=== PATIENT | male | born 1970 | race Hispanic/Latino ===

== ENCOUNTER 2025-09-28 14:34 | Emergency (ER) | payer MEDICARE ==
[~2025-09-28] VITALS: Ht 172.7 cm; Wt 84.4 kg
--- NOTE | 2025-09-28 15:25 | HMCIMG ---
EXAM: CT Head Without IV contrast. CLINICAL HISTORY: Head injury with syncopal episode. TECHNIQUE: Axial computed tomography images of the head/brain without intravenous contrast. CT dose length product (DLP): 965 mGy???cm. COMPARISON: None provided. FINDINGS: BRAIN: Age-appropriate diffuse cerebral volume loss. Scattered small ischemic changes in the bilateral frontoparietal white matter. No evidence of acute hemorrhage. No mass lesion. No CT evidence for acute territorial infarct. No midline shift or extra-axial collections. No CT evidence of trauma-related neuroparenchymal injury. VENTRICLES: No hydrocephalus. ORBITS: The orbits are unremarkable. SINUSES AND MASTOIDS: Mucosal thickening and partial opacification of the bilateral ethmoid, maxillary, frontal, and sphenoid sinuses, compatible with pansinusitis. Mastoid air cells are clear. BONES: Minimally displaced fracture of the left nasal bone. SOFT TISSUES: Adjacent soft tissue contusion overlying the left nasal region. No large scalp hematoma. IMPRESSION: * No CT evidence of acute intracranial hemorrhage, mass effect, territorial infarct, or trauma-related neuroparenchymal injury in this patient with head injury and syncope. * Minimally displaced left nasal bone fracture with overlying soft tissue contusion. * Age-appropriate diffuse cerebral volume loss with chronic small ischemic changes in the bilateral frontoparietal white matter and CT features of paranasal sinusitis involving the ethmoid, maxillary, frontal, and sphenoid sinuses. /[place]
[2025-09-28 15:51] VITALS: BP 108/66; PULSE 69; RESP 17; TEMP 98.6; O2SAT 98
--- NOTE | 2025-09-28 15:54 | ERN ---
ED Note History of Present Illness Stated Complaint: POSSIBLEVHEAD INJURY Chief Complaint: Head Injury Time Seen by MD: 14:37 Time Seen by Midlevel: 14:40 Dictation: 55 year old male with a history of mental delay brought in by provider for evaluation of head injury with a sink. As per provider patient went to PCP for evaluation of having flu-like symptoms while he was there the nurse asked him to remove his sweater to check his blood pressure. After the blood pressure was checked patient became upset went to the restroom and hit his head on the sink and broke the same. Negative LOC, no blood thinners. Provider stated soon as he heard a loud noise from the restroom he came out of the restroom and said in broke. Allergies: Coded Allergies: No Known Allergies (Unverified Allergy, Unknown, 09/28/25) Past Medical History Past Medical History: Anxiety, Bipolar, Depression, Diabetes-Type II, GERD, High Cholesterol, Prostatitis, Seizure Additional Past Medical Hx: PSYCHOSIS Surgical History: None Review of System Dictation Constitutional: Negative for fever,chills, and weight loss Eyes: Negative for injury, pain,redness, and discharge ENT: Negative for injury,pain or swelling Cardiovascular: Negative for chest pain, palpitations, and edema Respiratory: Negative for shortness of breath, cough, and wheezing, Abdomen/GI: Negative for abdominal pain, nausea, vomiting, diarrhea, and constipation Back: Negative for injury and pain : Negative for injury, bleeding and discharge MS/Extremity: Negative for injury and deformity Skin: Negative for rash, and discoloration Neuro: Negative for headache, weakness, numbness, tingling, and seizure Psych: Negative for suicide ideation, homicidal ideation, and hallucinations Review of Systems: was completed Initial Vital Sign VS Vital Signs Date Time Temp Pulse Resp B/P (MAP) Pulse Ox O2 Delivery O2 Flow Rate FiO2 09/28/25 14:36 97.9 88 16 113/74 96 Room Air 0 Physical Exam Dictation General: awake, alert, NAD Head/Face: Normocephalic, atraumatic Eyes: PERRL, EOMI, vision at baseline, no pain on palpation around the orbital bones ENT: oral cavity clear, TMs clear, no signs of infection, there is no swelling or obvious dislocation or fractures, no pain on palpation around the nasal bone Neck: Trachea midline, supple, no nuchal rigidity Cardiovascular: RRR, normal S1/S2, No MRGs, no JVD Respiratory: CTAB, no respiratory distress, No rales or wheezes Abdomen: Soft, non-tender, non-distended, normal bowel sounds, no guarding or rebound. Skin: Warm, dry, normal turgor, no rash MS/Extremity: Pulses equal, no cyanosis, neurovascular intact, FROM Neuro: COAx4, GCS 15, strength 5/5, CN 2-12 intact, normal cerebellar exam, nor mal gait, Psych: Normal behavior, mood, and affect normal Results (Laboratory/Radiology) CT Scan Comment: [facility] [address] [place] [address] IMAGING REPORT Signed PATIENT: BHAVIK AVILA MR#: [id number] : 1970 SEX: M AGE: 55 LOCATION: [facility] ORDER [id number] STATUS: REG ER REPORT#: [id number] SERVICE [id number] REASON: head injury with sink ORDERING PHYSICIAN: TAMMY FOLEY CNP PROCEDURE: HEAD WO - CT HEAD/BRAIN W/O CONTRAST EXAM: CT Head Without IV contrast. CLINICAL HISTORY: Head injury with syncopal episode. TECHNIQUE: Axial computed tomography images of the head/brain without intravenous contrast. CT dose length product (DLP): 965 mGy???cm. COMPARISON: None provided. FINDINGS: BRAIN: Age-appropriate diffuse cerebral volume loss. Scattered small ischemic changes in the bilateral frontoparietal white matter. No evidence of acute hemorrhage. No mass lesion. No CT evidence for acute territorial infarct. No midline shift or extra-axial collections. No CT evidence of trauma-related neuroparenchymal injury. VENTRICLES: No hydrocephalus. ORBITS: The orbits are unremarkable. SINUSES AND MASTOIDS: Mucosal thickening and partial opacification of the bilateral ethmoid, maxillary, frontal, and sphenoid sinuses, compatible with pansinusitis. Mastoid air cells are clear. BONES: Minimally displaced fracture of the left nasal bone. SOFT TISSUES: Adjacent soft tissue contusion overlying the left nasal region. No large scalp hematoma. IMPRESSION: * No CT evidence of acute intracranial hemorrhage, mass effect, territorial infarct, or trauma-related neuroparenchymal injury in this patient with head injury and syncope. * Minimally displaced left nasal bone fracture with overlying soft tissue contusion. * Age-appropriate diffuse cerebral volume loss with chronic small ischemic changes in the bilateral frontoparietal white matter and CT features of paranasal sinusitis involving the ethmoid, maxillary, frontal, and sphenoid sinuses. /[place] DICTATED BY: DOMINICK ZELAYA MD DATE: 09/28/251623 ELECTRONICALLY SIGNED BY: DOMINICK ZELAYA MD DATE: 09/28/251623 ED Course ED Course Orders Procedure Category Date Status Time Ct Head/Brain W/O CT 09/28/25 Resulted Contrast 14:41 Vital Signs Date Time Temp Pulse Resp B/P (MAP) Pulse Ox O2 Delivery O2 Flow Rate FiO2 09/28/25 14:36 97.9 88 16 113/74 96 Room Air 0 Medical Decision Making MDM MDM: 55 year old male with a history of mental delay brought in by provider for evaluation of head injury with a sink. As per provider patient went to PCP for evaluation of having flu-like symptoms while he was there the nurse asked him to remove his sweater to check his blood pressure. After the blood pressure was checked patient became upset went to the restroom and hit his head on the sink and broke the same. Negative LOC, no blood thinners. Provider stated soon as he heard a loud noise from the restroom he came out of the restroom and said in broke. CT results of head results shows a minimally displaced nasal fracture. Discussed findings with the provider. Educated that he needs to follow up with PCP for further evaluation by either plastic surgeon Orthopedics. Provider verbalized understanding. States she has not appointment with the PCP tomorrow and we will follow up on it. Differential diagnosis: ICH, SDH, Rationale: Tests considered and ordered secondary to shared decision making include: Previous outside records reviewed: Old ER visits. Risk of complication and/or morbidity or mortality of patient management: None Medications-Per medication reconciliation Need for hospitalization: Patient does not meet criteria for hospitalization. Need for emergency major/minor surgery: No There are no social concerns with this patient. Prescription drug management Prescriptions will include symptomatic care Patient's prior external medical records from other ER visits were reviewed by me as indicated. Prior testing and results from previous visits were reviewed. Prior tests were taken into account with medical decision making and resource utilization, independent historian/historians were used to obtain complete medical history. I independently interpreted the test that were performed, results were reviewed by me and considered findings on radiology if ordered. Medical management and examination interpretation discussions were had by me with other qualified healthcare professionals as indicated for the patient's care. DX & DISP Disposition: Discharge Departure Impression: Primary Impression: Nasal bone fracture Condition: Stable Additional Instructions: take Motrin for pain control. Follow up with your primary doctor tomorrow. Referrals: VAHID BUSTAMANTE MD (PCP) Time of Disposition: 15:53 I have reviewed the case, and I agree with, Diagnosis and Plan TAMMY FOLEY CNP Sep 28, 2025 15:54
== END 2025-09-28 16:05 | disposition home or self-care (01) ==
LOC: EDH 14:34
DX: S02.2XXA Fracture of nasal bones, initial encounter for closed fracture (principal); E11.9 Type 2 diabetes mellitus without complications; E78.00 Pure hypercholesterolemia, unspecified; F31.9 Bipolar disorder, unspecified; X58.XXXA Exposure to other specified factors, initial encounter; Y93.89 Activity, other specified; Y92.89 Other specified places as the place of occurrence of the external cause; Y99.8 Other external cause status
CPT/HCPCS: 70450; 99284